=== PATIENT | male | born 1940 | race Caucasian/White ===

== ENCOUNTER 2020-05-15 15:39 | Inpatient (IN) | payer MEDICARE, OTHER ==
[2020-05-15] MEDS ORDERED: Pantoprazole 40 MG VIAL ONE (18:00)
[2020-05-15] MEDS ORDERED: Ondansetron ODT 4 MG TAB ONE (18:26)
[2020-05-15] MEDS ORDERED: Ondansetron PF 4 MG/2 ML Vial IVP PRN (18:39)
[2020-05-15] MEDS ORDERED: Acetaminophen 325 MG TAB PO PRN (18:39)
[2020-05-15 19:17] LABS: Hemoglobin 12.9 g/dL (14.0-18.0); Platelet Count 165 thou/uL (130-400)
[2020-05-15] MEDS: Pantoprazole 40 MG VIAL IVP SCH (20:29)
[2020-05-15] MEDS ORDERED: Sodium Chloride 0.9% 1,000 ML IV SCH (20:30)
[2020-05-15] MEDS: 1/2 NS w/KCL 20 mEq 1,000 ML IV SCH (22:25)
[2020-05-15 22:40] VITALS: BMI 26.1
--- NOTE | 2020-05-16 00:12 | CON ---
DATE OF CONSULTATION: 05/15/2020 REQUESTING PHYSICIAN: Dr. Walker. REASON FOR CONSULTATION: Vomiting and hematemesis. HISTORY OF PRESENT ILLNESS: Tigre Hodge is a very pleasant 79-year-old gentleman with a history of arthritis and multiple back surgeries as well as coronary artery disease and coronary artery bypass. He does take Plavix. He reports back around 1984, he had bariatric surgery. He recalls that in the couple of years after that, he had an episode of obstruction at his gastric outlet, had a piece of potato impacted there that had to be removed, but since then over the past, greater than 30 years, he has done very well, really not had any trouble with this. He denies any chronic gastrointestinal symptoms aside from a tendency toward constipation, which he usually controls with laxative sparingly as needed. I met him back in April 2017 and performed EGD and colonoscopy at that time. The colonoscopy was normal. The EGD showed postoperative changes of what appeared to be a fundoplasty with a small gastric pouch and visible suture material, but was otherwise unremarkable. The patient does not take any acid suppression. He does chew tobacco. About 3 days ago, he started having nausea and emesis whenever he tried to eat anything. He is usually able to keep liquids down, but is having trouble even with his pills. Starting yesterday, he had a couple of episodes of bright red blood in his emesis and this alarmed him. Today, he has had a few episodes of emesis and this has just been a darker liquid. He does not feel any pain in the chest. He feels as if after swallowing, he gets distention in the epigastric area. He is hemodynamically stable and labs show hemoglobin of 13.4. A CT of the abdomen and pelvis was performed and it shows some fluid distention of the gastric pouch and distal esophagus and mild obstructive process at the distal part of the pouch could not be excluded. He is able to handle his secretions. He is not spitting anything up. REVIEW OF SYSTEMS: Full review of systems including constitutional, head, eyes, ears, nose, throat, GI, , cardiovascular, respiratory, musculoskeletal, and neurologic systems is negative except as noted in the HPI. PAST MEDICAL HISTORY: Gastric surgery in 1984; arthritis; back surgery x4; coronary artery disease, status post CABG; hypertension; hyperlipidemia; depression and anxiety; BPH; and normal colonoscopy in 2017. FAMILY HISTORY: Maternal grandfather had colon cancer. SOCIAL HISTORY: The patient chews tobacco. No alcohol use. ALLERGIES: NO KNOWN DRUG ALLERGIES. OUTPATIENT MEDICATIONS: 1. Flomax. 2. Plavix. 3. Lipitor. 4. Losartan. PHYSICAL EXAMINATION: VITAL SIGNS: Temperature 98.8, pulse 87, blood pressure 142/82, and 97% oxygen saturation on room air. GENERAL: 79-year-old man lying in bed comfortably, in no distress. MENTAL: Alert and fully oriented. Pleasant, conversational. SKIN: No jaundice. No rashes were palpable. EYES: No scleral icterus. Extraocular movements intact. ENT: Mucous membranes moist. No oral lesions. LYMPH: No submandibular or supraclavicular lymphadenopathy. THYROID: Nontender to palpation. HEART: Regular rate and rhythm. LUNGS: Clear to auscultation bilaterally. ABDOMEN: Bowel sounds present. Soft. Some tenderness to palpation in the epigastrium, but no guarding or rebound tenderness. EXTREMITIES: No peripheral edema. VESSELS: Radial pulses 2+ bilaterally. NEUROLOGIC: Cranial nerves 2 through 12 intact bilaterally. No focal deficits. LABORATORY STUDIES: WBC 15.4, hemoglobin 13.4, platelets 189. Sodium 143, potassium 4.5, BUN 19, creatinine 1.01. INR 1.0. Troponin negative. CRP less than 0.5. Lipase 20. LFTs normal. IMAGING STUDIES: CT of the abdomen and pelvis demonstrates fluid distention of the gastric pouch and distal esophagus. Mild obstructive process at the distal pouch could not be excluded. ASSESSMENT AND PLAN: 1. Nausea and vomiting for the past 3 days. 2. Hematemesis, small volume, but there is no evidence of anemia or ongoing significant bleeding. 3. History of prior bariatric surgery. The patient's presentation and CT findings certainly suggest some kind of partial obstructive process at the outlet of his gastric pouch. Notably, there was no stenosis noted in the area on EGD three years ago. Consider the possibility of anastomotic stricture or ulceration. Consider the formation of feed bezoar. The patient is currently able to handle his secretions and is not having any chest pain. We are going to plan on upper endoscopy tomorrow. Please have him n.p.o. until then, treat with PPI. Monitor H and H. Depending on findings, if possible, we may perform dilation of the gastric pouch outlet, again depending on findings. Thank you for the consultation. Please call anytime with questions or concerns. Job ID: [id number]
[2020-05-16 01:09] LABS: Hemoglobin 11.2 g/dL (14.0-18.0); Platelet Count 145 thou/uL (130-400)
[2020-05-16 05:28] LABS: #Eosinphils 0.1 thou/uL (0.0-0.7); #Lymphocytes 1.4 thou/uL (1.20-3.40); #Monocytes 0.9 thou/uL (0.11-0.59); #Neutrophils 7.2 thou/uL (1.40-6.50); %Basophils 0.4 % (0.0-1.0); %Eosinophils 0.8 % (0.0-10.0); %Lymphocytes 14.2 % (21.0-51.0); %Monocytes 8.9 % (0.0-10.0); %Neutrophils 75.7 % (42.0-75.0); Hemoglobin 11.1 g/dL (14.0-18.0); Mean Corpuscular HGB CONC 32.3 g/dL (32.0-36.0); Mean Corpuscular Hemoglobin 28.4 pg (27.0-31.0); Mean Corpuscular Volume 87.9 fL (78.0-98.0); Mean Platelet Volume 9.6 fL (7.4-10.4); Platelet Count 142 thou/uL (130-400); RBC Distribution Width 12.4 % (11.5-14.5); White Blood Cell (WBC) Count 9.5 thou/uL (4.8-10.8)
--- NOTE | 2020-05-16 05:29 | HP ---
CHIEF COMPLAINT: Abdominal pain. HISTORY OF PRESENT ILLNESS: This is an 79-year-old male with a remote history of a bariatric surgery roughly 40 years ago and dilation few years ago, presenting with abdominal pain, vomiting, diarrhea, as well as bright red blood per rectum to [facility]. He also had lower abdominal pain. Occult blood test was positive there. Hemoglobin was 13.4 with a lactic acid of 1.7. He also had mild elevated leukocytosis with white count of 15,000. His liver function tests, lipase, and creatinine were normal. CT of abdomen and pelvis with IV contrast showed nonspecific fluid distention of the distal esophagus and gastric pouch and mild obstruction at the level of distal gastric pouch cannot be entirely excluded. Chronic appearing compression abnormalities of L2, L1 and T11. Trauma Surgery was approached by ER physician and referred to GI. They talked to Dr. Pee Edmonds and plan to do the EGD in the morning for dilation of this gastroesophageal junction. We will keep him n.p.o. tonight. He is not able to hold any p.o. intake. As soon as he eats, he throws up. He also had 3 episodes of coffee-ground emesis. His last bowel movement was yesterday and very small. He is not passing gas. He denies any hematuria and dysuria. REVIEW OF SYSTEMS: The patient did not have any fever, night sweats, or chills. Denies headache, blurriness, tingling, or numbness in his extremities. No chest pain or productive cough. Rest of the review of systems are negative. PAST MEDICAL HISTORY: 1. Coronary artery disease. 2. History of benign prostate hypertrophy. 3. Hypertension. 4. Hyperlipidemia. PAST SURGICAL HISTORY: Gastric bypass surgery remotely and gastric stapling few years ago. Two-vessel CABG. Spinal surgery. SOCIAL HISTORY: The patient does not smoke or drink. FAMILY HISTORY: Both parents have history of they are negative. ALLERGIES: HE HAS NO KNOWN DRUG ALLERGY. PHYSICAL EXAMINATION: VITAL SIGNS: Temperature 99.2, blood pressure 157/73, pulse 75 saturating 98% in the room air. GENERAL: The patient is alert, oriented x4. He appears not toxic looking. He just has some abdominal pain. HEENT: Pupils are equal, round, and reactive to light. Anicteric. Mucous membranes moist. CARDIOVASCULAR: Regular rate and rhythm without murmurs, rubs, or gallops. LUNGS: Clear to auscultation bilaterally without wheezing, rales, or rhonchi. ABDOMEN: Palpated, he has some tenderness in the epigastric area. Otherwise, bowel sounds are positive. There is no guarding or rigidity appreciated. There is no rash over his abdomen. EXTREMITIES: Lower extremities without any pitting edema. SKIN: No rash in the torso or extremities. NEUROLOGIC: No focal deficits. LABORATORY DATA: Labs at the [facility] with white count of 15, hemoglobin 13.4. Lactic acid 1.7. Liver function test, lipase, and creatinine were normal. IMAGING STUDIES: CT abdomen as suggested has given above fluid distention in the gastric pouch. IMPRESSION AND PLAN: This is a 79-year-old male with a history of coronary artery disease, gastric bypass surgery followed by stapling, presenting with what appears to be dilation of the pouch as well as fluid distention in the distal gastric pouch, triggering his nausea and vomiting. He also seems to have occult blood test positive. We are admitting for the GI workup. Dr. Pee Edmonds already knows about the patient being admitted, keep him n.p.o. and possible EGD in the morning. We will run the Protonix drip as well. H and H. We will repeat the labs today as well as tomorrow. No anticoagulant for deep venous thrombosis prophylaxis. His other chronic medical conditions like coronary artery disease and hypertension seems to be stable. Med rec has not been updated. We will review them when available and update it. . Job ID: [id number] [facility]
[2020-05-16 05:49] LABS: Anion Gap 10 mmol/L (10-20); BUN (Urea Nitrogen) 15 mg/dL (8.4-25.7); Calc. Creatinine Clearance 79 mL/min (70-130); Calcium 8.8 mg/dL (7.8-10.44); Carbon Dioxide 28 mmol/L (23-31); Chloride 106 mmol/L (98-107); Estimated GFR-MDRD 89; Glucose 83 mg/dL (83-110); Potassium 3.9 mmol/L (3.5-5.1); Sodium 140 mmol/L (136-145)
[2020-05-16] MEDS ORDERED: Pantoprazole 40 MG VIAL IVP SCH (09:00)
[2020-05-16] MEDS ORDERED: Succinylcholine Chloride 20 MG/ML 10 ml SYRINGE FS ONE (09:23)
[2020-05-16] MEDS ORDERED: Lidocaine 1% PF 5 ML VIAL ONE (09:23)
[2020-05-16] MEDS ORDERED: PROPOFOL 200 MG/20 ML VIAL ONE (09:23)
[2020-05-16] MEDS ORDERED: EPHEDRINE 25 MG/5 ML SYRINGE ONE (09:23)
[2020-05-16] MEDS: Pantoprazole 40 MG VIAL IVP SCH ×2 (09:36→20:16)
[2020-05-16] MEDS ORDERED: Fentanyl 100 MCG/2 ML VIAL ONE (14:51)
--- NOTE | 2020-05-16 14:57 | PDOC.HOSPP ---
- Subjective Encounter Date: 05/16/20 Encounter Time: 12:00 Subjective: Feels better. He is not nauseated. He feels like he can have some meals. He is n.p.o. for possible EGD tomorrow. IV fluid running. Mild tenderness in the midabdominal area- he has a surgical scar with a remote history of bariatric surgery. - Objective Vital Signs & Weight: Vital Signs (12 hours) Temp Pulse Resp BP Pulse Ox 05/16/20 11:30 97.8 F 58 L 18 145/70 H 98 05/16/20 03:44 98.0 F 59 L 18 137/73 98 Weight Weight 177 lb I&O: 05/15/20 05/16/20 05/17/20 06:59 06:59 06:59 Intake Total 825 Balance 825 Result Diagrams: 05/16/20 05:13 05/16/20 05:13 Hospitalist ROS - Medication Medications: Active Medications Generic Name Dose Route Start Last Admin Trade Name Freq PRN Reason Stop Dose Admin Potassium Chloride/Sodium Chloride 1,000 mls @ 75 mls/hr 05/15/20 21:15 05/15 22:25 1/2 Ns W/Kcl 20 Meq IV 1,000 mls .[id number] ETHAN Administration Pantoprazole Sodium 40 mg 05/15/20 21:00 05/16/20 09:36 Protonix IVP 40 mg BID ETHAN Administration - Exam General Appearance: NAD, awake alert Eye: PERRL ENT: normocephalic atraumatic Neck: supple Heart: RRR, normal peripheral pulses Respiratory: CTAB, normal chest expansion Gastrointestinal: soft, normal bowel sounds, tender to palpation Gastrointestinal - other findings: Mild tenderness in the midabdominal area- he has a surgical scar with a re Extremities: no edema Neurological: no focal deficits Psychiatric: normal affect, normal behavior, A&O x 3 Hosp A/P - Plan Nausea vomiting next mild hematemesis with no further episodes during since admission. Dilation of the gastric pouch and the fluid in the distal gastric area History of bariatric surgery followed by stapling Possible partial obstructive process at the gastric pouch with strictures in the anastomosis area or ulceration. --continue to keep NPO --Plan for EGD tomorrow --continue with the PPI IV --Serial H&H. Acute blood loss anemia There is a slight drop of 1 unit of hemoglobin. But does not require transfusion at this point as level is about 11.1. Full code
[2020-05-16] MEDS: 1/2 NS w/KCL 20 mEq 1,000 ML IV SCH ×2 (15:21→20:17)
[2020-05-16 15:33] LABS: SARS-CoV-2 MS2 Positive; SARS-CoV-2 N Gene Negative; SARS-CoV-2 S Gene Negative; SARS-CoV-2 by NAA Not Detected (NotDetected); SARS-CoV-2 orf1ab Negative
--- NOTE | 2020-05-16 17:51 | OP ---
DATE OF PROCEDURE: 05/16/2020 HOUSEKEEPING ROOM ATTENDANT SURGEON: None. PROCEDURE PERFORMED: Esophagogastroduodenoscopy with gastric dilation. INDICATIONS: 1. Persistent vomiting. 2. Hematemesis. 3. Prior history of bariatric surgery in the distant past. 4. Abnormal CT scan, suggesting obstructive process at the exit of the gastric pouch with dilation of the gastric pouch and distal esophagus. MEDICATIONS: See Anesthesia record. FINDINGS: After discussion of the risks, benefits, and alternatives of the procedure, informed consent was obtained and witnessed. Pre-endoscopic cardiopulmonary examination was satisfactory. Time-out was performed before sedation was achieved. Sedation was achieved with Anesthesia assistance in the endoscopy unit. A Pentax adult upper endoscope was placed into the oropharynx and passed through the cricopharyngeus under direct visualization. The esophageal mucosa appeared normal throughout with a normal-appearing Z-line at 38 cm from the incisors. The endoscope was advanced into the stomach. There is evidence of prior gastric surgery, what appears to be a fundoplasty procedure. The patient has a portion of proximal gastric fundus measuring about 10 cm in length, which effectively serves as a gastric pouch. At 48 cm, there is evidence of the fundoplasty with exposed suture material and moderate to severe stricture in that area, measuring 3 or 4 cm in length. The upper endoscope was barely able to advance beyond this strictured area, with some difficulty, the endoscope was advanced beyond the area and into the remainder of the stomach. The remainder of the gastric mucosa appeared normal. The endoscope was advanced through the pylorus and into the first and second portions of the duodenum. There is erosive duodenitis within the duodenal bulb. No evidence of any deep ulcer or high-risk bleeding lesion. At this point, the endoscope was withdrawn back into the gastric pouch. I used an esophageal balloon to serially dilate the pyloroplasty site to 18, then 19, then 20 mm. Following dilation, the site was examined and there was good mucosal disruption. There was some mild oozing induced, which had finished by the end of the procedure. The endoscope was able to pass through the site more easily afterward. The endoscope was then completely withdrawn and the patient allowed to recover. The patient tolerated the procedure well. There were no immediate postprocedure complications. IMPRESSION: 1. 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 2. Exposed sutures at the fundoplasty site. 3. Erosive duodenitis. 4. The patient probably passed a food impaction or bezoar since hospital presentation. RECOMMENDATIONS: 1. Low residue diet. 2. The patient will need to start on an oral proton pump inhibitor twice daily on discharge. 3. Follow up results of gastric biopsies. If H pylori is present, treat with triple therapy and confirm eradication. 4. Anticipate the patient will be able to discharge home tomorrow if he does well overnight and there are no procedural complications. Job ID: [id number]
[2020-05-16] MEDS ORDERED: Losartan 25 MG TAB PO SCH (20:00)
[2020-05-16] MEDS ORDERED: Atorvastatin Calcium 40 MG TAB PO SCH (21:00)
[2020-05-17] MEDS: 1/2 NS w/KCL 20 mEq 1,000 ML IV SCH (06:11)
[2020-05-17] MEDS: Pantoprazole 40 MG VIAL IVP SCH (08:40)
[2020-05-17] MEDS ORDERED: Losartan 25 MG TAB PO SCH (09:00)
[2020-05-17] MEDS ORDERED: Tamsulosin HCl 0.4 MG CAP PO SCH (09:00)
[2020-05-17] MEDS ORDERED: Bisacodyl 10 MG SUPP PR SCH (11:15)
--- NOTE | 2020-05-17 11:46 | PRG ---
DATE OF SERVICE: 05/17/2020 SUBJECTIVE: Mr. Hodge is feeling well. There has been no further nausea or vomiting. No abdominal discomfort. He does feel a bit constipated. It has been 4 days since his last bowel movement. He is going to receive some Dulcolax. He has been tolerating his diet, but is trying to eat smaller portions. OBJECTIVE: VITAL SIGNS: Temperature 98.2, pulse 61, blood pressure 151/68, 92% oxygen saturation on room air. GENERAL: No acute distress. HEART: Regular rate and rhythm. LUNGS: Clear to auscultation bilaterally. ABDOMEN: Soft, nontender to palpation. EXTREMITIES: No peripheral edema. LABORATORY DATA: No new labs today. From yesterday; hemoglobin was 11.1, WBC 9.5, platelets 142. BUN 15, creatinine 0.83. ASSESSMENT AND PLAN: 1. 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 2. Erosive duodenitis. 3. Nausea and vomiting, resolved. The patient likely passed food impaction or bezoar between presentation and his endoscopy yesterday. There is no further vomiting. We discussed that this fundoplasty stricture is going to be a persistent issue, but hopefully after dilation, he will have less problems. Dilation could always be repeated in the future as needed. He does need to continue on twice daily proton pump inhibitor. We will follow up gastric biopsy results when they are available. I think he can be safely discharged from the hospital, and can follow up as needed with me in clinic. GI will sign off, but please call back anytime with questions or concerns. Job ID: [id number]
[2020-05-17 12:02] VITALS: TEMP 98.7
[2020-05-17 14:58] VITALS: BP 136/64
--- NOTE | 2020-05-17 18:23 | DIS ---
DATE OF ADMISSION: 05/15/2020 DATE OF DISCHARGE: 05/17/2020 DISCHARGE DISPOSITION: Home. 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 SECONDARY DISCHARGE DIAGNOSES: History of chronic anemia, chronic back pain, coronary artery disease with prior coronary artery bypass graft, hypertension, dyslipidemia. PROCEDURES DONE DURING HOSPITALIZATION: The patient has had upper endoscopy done by Dr. Pee Edmonds on 05/16/2020, which showed stricture at the gastric fundoplasty site at 48 cm, which was dilated with balloon. There was erosive duodenitis seen. Serial hemoglobin and hematocrit remained stable at 11 and 34, platelet count 142, MCV 87, BUN 15, creatinine 0.8. COVID-19 PCR was negative on 05/15/2020. DISCHARGE MEDICATIONS: 1. Protonix 40 mg p.o. twice daily for a total of 30 days. 2. Flomax 0.4 mg p.o. daily. 3. Losartan 50 mg p.o. daily. 4. Plavix 75 mg p.o. daily. 5. Atorvastatin 40 mg p.o. at bedtime. ALLERGIES: NO KNOWN DRUG ALLERGIES. DISCHARGE PLAN: The patient to follow up with Dr. Grey Glasgow in 2 to 3 weeks. He needs to follow up with Dr. Velazquez in 1 week. BRIEF COURSE DURING HOSPITALIZATION: The patient initially got admitted on the 15 of May with complaints of nausea, vomiting, abdominal pain, and an episode of bleeding when he threw up. He has known history of bariatric surgery and has had prior stricture at the fundoplasty site. He was taken for upper endoscopy with Dr. Pee Edmonds. The patient has had dilatation of the stricture at gastric fundoplasty site at 48 cm. Post this procedure, the patient is tolerating oral solid diet. He has been advised to go slow with liquid diet and then slowly advance himself to solid diet. The patient needs to have ongoing followups with his community health outreach worker as he might require further dilatations in the future. His nausea has completely resolved and is tolerating solid diet. He was constipated for nearly 4 days prior to arrival here and has had a bowel movement with Dulcolax suppository. He is ambulating in the room and is wanting to go home. He is hemodynamically stable. His hemoglobin and hematocrit have remained stable with no transfusions done during his stay here. Please note, I have seen and examined the patient on the day of discharge. Job ID: [id number] [id number]
== END 2020-05-17 15:40 | disposition home or self-care (01) | DRG 378 ==
LOC: ERS 15:39 → SURG B 17:32
PROVIDERS: ADMIT Internal Medicine; ATTEND Internal Medicine
PROC: 0D768ZZ Dilation of Stomach, Via Natural or Artificial Opening Endoscopic (ICD-10-PCS; principal; 2020-05-16)
DX: K29.81 Duodenitis with bleeding (principal); D62 Acute posthemorrhagic anemia; D64.9 Anemia, unspecified; G89.29 Other chronic pain; I25.10 Atherosclerotic heart disease of native coronary artery without angina pectoris; Z20.828 Contact with and (suspected) exposure to other viral communicable diseases; I10 Essential (primary) hypertension; E78.5 Hyperlipidemia, unspecified; K59.00 Constipation, unspecified; N40.0 Benign prostatic hyperplasia without lower urinary tract symptoms; F17.210 Nicotine dependence, cigarettes, uncomplicated; Z95.1 Presence of aortocoronary bypass graft; Z98.84 Bariatric surgery status
CPT/HCPCS: 36415; 80048; 85014; 85018; 85025; 85049; 87635; 88305; 88312; 96374; C9113; J2704; J3010; J3480; Q0162; U0003